=== PATIENT | male | born 1995 | race Caucasian/White ===

== ENCOUNTER → 2020-11-04 09:32 | Outpatient (CLI) | payer OTHER, SELFPAY ==
[2020-11-04 10:33] LABS: Anion Gap 4 (5-15); BUN 15 mg/dL (7-18); BUN/Creat Ratio 14.7 RATIO (10-20); Calcium,Total 9.8 mg/dL (8.5-10.1); Chloride 110 mmol/L (98-107); Creatinine, Serum 1.02 mg/dL (0.70-1.30); EST Glomerular Filtration Rate 96 mL/min (>60); Est Glom Filt Rate - Afr Amer 116 mL/min (>60); Glucose 93 mg/dL (74-106); Potassium 3.9 mmol/L (3.5-5.1); Sodium Level 139 mmol/L (136-145)
[2020-11-04 10:38] LABS: Microalbumin,Random Urine 6.3 mg/L (NO RANGE EST.); Microalbumin:Creatinine Ratio 4.9 mg/g CRE (<30 mg/g CRE)
== END ==
LOC: LAB 09:39
PROVIDERS: PCP Family Medicine; Referring Provider Family Medicine; Visit Provider Family Medicine
DX: I10 Essential (primary) hypertension (principal)
CPT/HCPCS: 36415; 80048; 82043; 82570

== ENCOUNTER 2020-12-06 19:51 | Emergency (ER) | payer OTHER, SELFPAY ==
[2020-12-06 19:51] VITALS: BP 133/86; PULSE 85; RESP 18; TEMP 36.1; O2SAT 99; BMI 30.2
--- NOTE | 2020-12-06 20:07 | RAD_ITS ---
STUDY: X-RAY CHEST REASON FOR EXAM: Male, 25 years old. Chest pain TECHNIQUE: Single frontal view of the chest. COMPARISON: None. FINDINGS: The lungs are clear and expanded. There is no demonstrated pleural abnormality. Normal size heart. Normal mediastinum and jovana. Normal visualized pulmonary arteries. Normal visualized aortic arch and descending thoracic aorta. Normal visualized thoracic spine. Normal visualized ribs, clavicles, and shoulders. There is no demonstrated abnormality of the visualized soft tissue structures of the upper abdomen. RAD/Chest 1 View (Portable) IMPRESSION: Normal x-ray examination of the chest. Electronically Signed: Dimitri Zuluaga MD at 21:06 EDT Tel , Service support ,
--- NOTE | 2020-12-06 20:07 | EKG12_ITS ---
Test Reason : CP Blood Pressure : / mmHG Vent. Rate : 076 BPM Atrial Rate : 076 BPM P-R Int : 140 ms QRS Dur : 086 ms QT Int : 374 ms P-R-T Axes : 029 -02 043 degrees QTc Int : 420 ms Normal sinus rhythm Normal ECG Confirmed by EMILY VALLE, MELVIN ([id number]), managing editor JL PENDLETON ([id number]) on 12/08/2020 10:45:11 A M Referred By: ALE/KATHERIN Confirmed By:UNIQUE DIAZ MD
--- NOTE | 2020-12-06 20:08 | EX.ED.DYSGE1 ---
HPI History of Present Illness Chief Complaint: Chest Pain Informant: patient Narrative Narrative: 25-year-old male with a history of hypertension on lisinopril presents with evaluation of chest pain. He states that there is a pressure in the center of his chest to go straight through to his back. Nothing he does makes it better or worse. It has been rather constant. He also states now he feels like there is a lump in his throat. He has not had any difficulty swallowing. He denies any cough or fevers. [facility] Medical History Hypertension Home Medications lisinopril 10 mg PO DAILY 12/06/20 [History Last Taken Unknown] pantoprazole [Protonix] 40 mg PO DAILY #14 tab 12/06/20 [Rx Last Taken Unknown] Allergy/AdvReac Type Severity Reaction Status Date / Time erythromycin base AdvReac Hives Verified 12/06/20 20:08 [From [facility]] Social History (Updated 12/06/20 @ 20:[address] Vu Olivo DO) Smoking Status: Never smoker substance use type: does not use ROS ROS ED Constitutional Constitutional ED: Denies chills or weight loss Eyes Eyes: Denies change in vision or diplopia ENT ENT ED: Reports other Details: See HPI ; Denies ear pain, rhinorrhea or sore throat Cardiovascular Cardiovascular: Reports chest pain; Denies orthopnea, palpitations or racing heartbeat Respiratory/Chest Respiratory/Chest: Denies cough, dyspnea or orthopnea Gastrointestinal Gastrointestinal: Denies abdominal pain, diarrhea, nausea or vomiting Genitourinary Genitourinary ED: Denies dysuria, hematuria or urinary frequency Musculoskeletal Musculoskeletal: Denies arthralgias or myalgias Integumentary Denies abscess or rash Neurologic Neurologic: Denies headache(s) or weakness Psychiatric Psychiatric: Denies anxiety, depression, suicidal ideation or suicidal thoughts Endocrine Endocrinology: Denies polydipsia, polyphagia or polyuria Allergic/Immunologic Allergic/Immunologic ED: Denies mouth swelling, tongue swelling or urticaria EXAM Physical Exam Const Vital Signs: 12/06/20 19:51 12/06/20 20:03 12/06/20 20:57 Temperature 97 F L Temperature Source Temporal Pulse Rate 85 85 Respiratory Rate 18 16 Respiratory Effort Normal Blood Pressure 133/86 H 112/67 Blood Pressure Mean 101 82 Pulse Ox 99 97 Oxygen Delivery Method Room Air Room Air 12/06/20 21:00 Temperature Temperature Source Pulse Rate 78 Respiratory Rate 16 Respiratory Effort Blood Pressure 122/80 H Blood Pressure Mean 94 Pulse Ox 97 Oxygen Delivery Method Room Air Positive well nourished and well developed General Appearance ED: well developed HEENT Reports normocephalic, head/scalp atraumatic and moist mucous membranes Eyes PERRL and EOMs intact bilaterally Neck no lymphadenopathy, supple and no JVD Resp normal respiratory effort and clear to auscultation bilaterally Cardio regular rate, regular rhythm and no murmurs GI normal to inspection, nondistended, normoactive bowel sounds and non-tender GI Narrative: Decreased appetite Palpation: soft Back/Spine no CVA tenderness and normal ROM Extremity normal to inspection General Extremety ED: Negative for edema General Extremity: Negative for edema Neuro oriented x3 and CN's II-XII intact bilaterally Sensorium / Orientation: alert Motor Exam: strength 5/5 throughout Psych mental status grossly normal Mood & Affect: Negative for depressed or tearful Skin no rashes or lesions noted and no wounds MDM MDM MDM Narrative Medical decision making narrative: EKG is a normal sinus rhythm. White count came back low at 3.9. D-dimer negative troponin negative CMP normal. Lipase is 60 TSH is normal. My interpretation of the chest x-ray is no acute process. Radiology concurs. Patient received a GI cocktail states that the chest pressure is still present but the lump in his throat is better. So this could be esophagitis things reasonable to treat with trial of a proton pump inhibitor. In the interim we will have the patient monitor himself for any worsening symptoms and schedule a follow-up appoint with his doctor. Return if worsening or concerns. Lab Data Attestation: I reviewed the patient's lab results. Labs: Laboratory Results - last 24 hr 12/06/20 12/06/20 12/06/20 20:00 20:00 20:10 WBC 3.9 L RBC 5.55 Hgb 16.4 Hct 49.7 MCV 89.5 MCH 29.5 MCHC 33.0 RDW Std Deviation 42.9 RDW Coeff of [place] 13.0 Plt Count 169 MPV 11.6 Immature Gran % (Auto) 0.500 Neut % (Auto) 26.0 L Lymph % (Auto) 55.2 H Hand % (Auto) 13.4 H Eos % (Auto) 4.1 Baso % (Auto) 0.8 Absolute Neuts (auto) 1.0 L Absolute Lymphs (auto) 2.14 Nucleated RBC % 0 D-Dimer Quant (PE/DVT) <= 0.27 Sodium 136 Potassium 3.8 Chloride 102 Carbon Dioxide 27.0 Anion Gap 7 BUN 16 Creatinine 1.33 H Estim Creat Clear Calc 100.43 Est GFR (MDRD) Af Amer 85 Est GFR (MDRD) Non-Af 71 BUN/Creatinine Ratio 12.0 Glucose 64 L Calcium 9.3 Total Bilirubin 0.40 AST 19 ALT 27 Alkaline Phosphatase 84 Troponin I < 0.015 Total Protein 7.7 Albumin 4.1 Globulin 3.6 Albumin/Globulin Ratio 1.1 Lipase 60 L TSH 0.49 Radiography Diagnostic Testing: Radiology Impression Chest X-Ray 12/06/20 20:07 IMPRESSION: Normal x-ray examination of the chest. Electronically Signed: Dimitri Zuluaga MD at 21:06 EDT Tel , Service support , EKG Initial EKG: Attestation: I personally reviewed and interpreted this EKG as follows: Comments: EKG is a normal sinus rhythm at a rate of 76. No concerning features of ACS or ectopy noted. Discharge Plan Triage Chief Complaint: Chest Pain ED Provider: Vu Olivo Dx/Rx/DC Orders Clinical Impression: Chest pain Instructions: Esophagitis, ED Chest Pain, Uncertain Cause Prescriptions: New pantoprazole [Protonix] 40 mg tablet,delayed release (DR/EC) 40 mg PO DAILY Qty: 14 RF: 0 No Action lisinopril 10 mg Tablet 10 mg PO DAILY RF: 0 Primary Care Provider: Stephane Machado Referrals: Stephane Machado DO [Primary Care Provider] - 1-2 Weeks Disposition Disposition: Home, self care
[2020-12-06] MEDS: Mag Hydrox/Al Hydrox/Simeth 30 ML UDC PO (20:12)
[2020-12-06 20:18] LABS: Absolute Lymphocyte Count 2.14 X10^3/uL (0.83-4.51); Basophil# 0.03 X10^3/uL; Basophil% 0.8 % (0-1); Eosinophil# 0.16 X10^3/uL; Eosinophils% 4.1 % (0-5); Hematocrit 49.7 % (40-54); Hemoglobin 16.4 g/dL (13.0-16.5); Lymphocyte # 2.14 X10^3/ul (0.83-4.51); Lymphocyte % 55.2 % (19-41); Mean Corpuscular Hgb 29.5 pg (27.0-32.0); Mean Corpuscular Volume 89.5 fL (80-94); Mean Platelet Vol. 11.6 fl (6.2-12.0); Monocyte# 0.52 X10^3/uL; Monocyte% 13.4 % (0-10); NRBC Flagged by Analyzer 0 % (0-5); Neutrophil # 1.01 X10^3/uL (2.7-7.7); Platelet Count 169 K/mm3 (150-450); RBC Distribution Width SD 42.9 fl (35.1-43.9); Red Blood Count 5.55 M/mm3 (4.6-6.2); White Blood Count 3.9 K/mm3 (4.4-11.0)
[2020-12-06 20:35] LABS: D-Dimer Quantitative (DVT/PE) <= 0.27 FEU/ug/m (0.27-0.49)
[2020-12-06 20:40] LABS: ALB/GLOB Ratio 1.1 RATIO (0.9-2.4); AST(SGOT) 19 U/L (15-37); Alanine Aminotransfer ALT/SGPT 27 U/L (16-61); Albumin, Serum 4.1 g/dL (3.2-5.0); Alkaline Phosphatase 84 U/L (45-117); Anion Gap 7 (5-15); BUN 16 mg/dL (7-18); Calcium,Total 9.3 mg/dL (8.5-10.1); Chloride 102 mmol/L (98-107); Creatinine, Serum 1.33 mg/dL (0.70-1.30); EST Glomerular Filtration Rate 71 mL/min (>60); Est Glom Filt Rate - Afr Amer 85 mL/min (>60); Estimated Creatinine Clearance 100.43 ml/min; Globulin 3.6 g/dL (2.2-4.2); Glucose 64 mg/dL (74-106); Lipase 60 U/L (73-393); Potassium 3.8 mmol/L (3.5-5.1); Protein, Total 7.7 g/dL (6.4-8.2); Sodium Level 136 mmol/L (136-145); Thyroid Stim Hormone (TSH) 0.49 uIU/mL (0.358-3.74)
[2020-12-06 20:57] VITALS: BP 112/67; PULSE 85; RESP 16; O2SAT 97
[2020-12-06 21:00] VITALS: BP 122/80; PULSE 78; RESP 16; O2SAT 97
[2020-12-06 21:35] VITALS: BP 119/72
== END 2020-12-06 21:39 | disposition home or self-care (01) ==
PROVIDERS: Emergency Provider Emergency Medicine; PCP Family Medicine
DX: R07.9 Chest pain, unspecified (principal); I10 Essential (primary) hypertension; Z79.899 Other long term (current) drug therapy
CPT/HCPCS: 71045; 80053; 83690; 84443; 84484; 85025; 85379; 87426; 93005; 99285; A4216

== ENCOUNTER 2021-08-12 06:44 | Emergency (ER) | payer BC, SELFPAY ==
[2021-08-12] VITALS (7 sets, daily range): BP systolic 118–152; BP diastolic 67–97; PULSE 18–101; RESP 14–21; TEMP 36.7; O2SAT 91–95; BMI 27.0
--- NOTE | 2021-08-12 06:49 | RAD_ITS ---
EXAM: XR CHEST, 1 VIEW : 1995 CLINICAL INDICATION: Dyspnea, cough, expiratory wheezing TECHNIQUE: Frontal view of the chest. This report was created using [employer] report generation technology. COMPARISON: 12/06/2020 FINDINGS: LUNGS AND PLEURAL SPACES: Unremarkable. No consolidation or edema. No pneumothorax. No effusion. HEART: Unremarkable. Cardiac silhouette not enlarged. MEDIASTINUM: Central airways and mediastinal contour are unremarkable. BONES/JOINTS: Unremarkable. SOFT TISSUES: Unremarkable. RAD/Chest 1 View (Portable) IMPRESSION: No radiographic evidence of acute cardiopulmonary disease. at 0937 Reported and signed by: Matthew Morales MD Electronically Signed: Matthew Morales MD at 9:36 EST ,
--- NOTE | 2021-08-12 06:51 | ED.VIS.DYS ---
HPI <Dr. Phan Sinclair MD - Last Filed: 08/12/21 07:40> History of Present Illness Chief Complaint: Shortness of Breath Informant: patient and parent Onset/Context/Timing Onset: Yesterday Context: sudden Timing: Continuous Quality: Positive for Dyspnea on exertion and Wheezing; Negative for Orthopnea and PND Current Severity: Mild Maximum Severity: Severe Worsened by: Exertion Relieved by: Nothing Associated Symptoms cough, rhinorrhea and clear sputum; Negative for fever, sore throat, subjective, chills, sweats, white sputum, yellow sputum or green sputum Chest Pain: Positive for None Narrative Narrative: Patient is a 26-year-old male who presents with nasal congestion, dyspnea and cough. Cough is slightly productive of clear-colored sputum. He had asthma as a child. He has been vaccinated for COVID. There is been no documented fever and he denies chills. He denies leg pain, swelling or discoloration. He denies history of VTE or any risk factors. Per mother sister had a pulmonary embolus. PE Risk Factors: Negative for Cancer, OCP + Smoking + > 35, Prior DVT or PE, Recent immobilization, Recent surgery and Recent travel Prior similar symptoms: No Recent Illness/Hospitalization: No PFSH <Dr. Phan Sinclair MD - Last Filed: 08/12/21 07:40> PFSH Medical History Hypertension Home Medications lisinopril 10 mg PO DAILY 12/06/20 [History Last Taken Unknown] albuterol sulfate [Ventolin HFA] 2 puff INHALATION Q4H PRN PRN #1 inhaler 08/12/21 [Rx Last Taken Unknown] prednisone 60 mg PO DAILY #15 tablet 08/12/21 [Rx Last Taken Unknown] Allergy/AdvReac Type Severity Reaction Status Date / Time erythromycin base AdvReac Hives Verified 12/06/20 20:08 [From [facility]] Social History (Updated 08/12/21 @ 06:[address] Phan Sinclair MD) household members: family Smoking Status: Current every day smoker tobacco type: cigarettes substance use type: marijuana ROS <Dr. Phan Sinclair MD - Last Filed: 08/12/21 07:40> ROS ED Constitutional Constitutional ED: Denies chills, fever(s), sweats or weight loss Eyes Eyes: Denies blurry vision, change in vision or diplopia ENT ENT ED: Reports rhinorrhea; Denies ear pain or sore throat Cardiovascular Cardiovascular: Denies chest pain, orthopnea, palpitations, paroxysmal nocturnal dyspnea or racing heartbeat Respiratory/Chest Respiratory/Chest: Reports cough, dyspnea, dyspnea on exertion and sputum; Denies orthopnea or paroxysmal nocturnal dyspnea Gastrointestinal Gastrointestinal: Denies abdominal pain, constipation, diarrhea, melena, nausea or vomiting Genitourinary Genitourinary ED: Denies dysuria, hematuria or urinary frequency Musculoskeletal Musculoskeletal: Denies arthralgias, back pain, myalgias or neck pain Integumentary Denies rash Neurologic Neurologic: Denies headache(s) or weakness Hematologic/Lymphatic Hematologic/Lymphatic: Denies easy bleeding or easy bruising EXAM <Dr. Phan Sinclair MD - Last Filed: 08/12/21 07:40> Physical Exam Const Vital Signs: 08/12/21 06:44 08/12/21 06:46 08/12/21 07:04 Temperature 98.1 F Temperature Source Oral Pulse Rate 101 H 95 Respiratory Rate 20 H 16 Respiratory Effort Short of Breath Respiratory Depth Normal Respiratory Pattern Normal Blood Pressure 152/97 H Blood Pressure Mean 115 Pulse Ox 94 95 Oxygen Delivery Method Room Air Room Air Room Air 08/12/21 07:35 08/12/21 10:24 08/12/21 11:37 Temperature Temperature Source Pulse Rate 98 18 L 82 Respiratory Rate 21 H 14 20 H Respiratory Effort Respiratory Depth Respiratory Pattern Blood Pressure 119/82 H 118/67 Blood Pressure Mean 94 Pulse Ox 92 93 91 Oxygen Delivery Method Room Air Room Air Positive well nourished and well developed General Appearance ED: well developed and other Patient appears dyspneic at rest. He is breathing greater than 20 times per minute. ; Negative for NAD or pallor HEENT Reports moist mucous membranes HEENT Narrative: Ears normal. Nares patent. atraumatic; Negative for tenderness Eyes PERRL and EOMs intact bilaterally General Eye ED: Negative for pale conjunctiva or scleral icterus Neck no lymphadenopathy, supple and no meningeal signs Neck Narrative: Trachea midline. No inspiratory expiratory stridor. Resp normal respiratory effort and No clear to auscultation bilaterally Auscultation: wheezes expiratory wheezes and throughout; Negative for rales or rhonchi Cardio regular rate, S1 normal heart sound, S2 normal heart sound and no murmurs Rate: tachycardic GI non-tender, non-distended and no masses Auscultation: normoactive bowel sounds Palpation: soft Back/Spine no CVA tenderness and normal to inspection Neuro oriented x3, CN's II-XII intact bilaterally and no sensory deficits noted [place] Coma Scale: document GCS findings Spontaneous Obeys Commands Oriented 15 Sensorium / Orientation: alert Motor Exam: strength 5/5 throughout Psych mental status grossly normal Thought Process: normal thought process Skin no wounds General Skin Exam: Negative for jaundice or pallor Lesions: no lesions Rashes: no rashes <Dr. Dawit Cardoza DO - Last Filed: 08/12/21 12:25> Physical Exam Const Vital Signs: 08/12/21 06:44 08/12/21 06:46 08/12/21 07:04 Temperature 98.1 F Temperature Source Oral Pulse Rate 101 H 95 Respiratory Rate 20 H 16 Respiratory Effort Short of Breath Respiratory Depth Normal Respiratory Pattern Normal Blood Pressure 152/97 H Blood Pressure Mean 115 Pulse Ox 94 95 Oxygen Delivery Method Room Air Room Air Room Air 08/12/21 07:35 08/12/21 10:24 08/12/21 11:37 Temperature Temperature Source Pulse Rate 98 18 L 82 Respiratory Rate 21 H 14 20 H Respiratory Effort Respiratory Depth Respiratory Pattern Blood Pressure 119/82 H 118/67 Blood Pressure Mean 94 Pulse Ox 92 93 91 Oxygen Delivery Method Room Air Room Air [facility] <Dr. Phan Sinclair MD - Last Filed: 08/12/21 07:40> [facility] Narrative Medical decision making narrative: In light of patient having rhinorrhea and cough with wheezing suspect he has respiratory infection. Need to rule out Covid. They represent viral versus bacteria. Unlikely to be pulmonary embolus. Will treat with prednisone 60 mg and albuterol. Chest x-ray was obtained to rule out pneumonia. Lab Data Attestation: I reviewed the patient's lab results. Lab results narrative: CBC is unremarkable. Basic metabolic panel is unremarkable. Labs: Laboratory Results - last 24 hr 08/12/21 08/12/21 07:09 07:09 WBC 9.6 RBC 5.81 Hgb 17.8 H Hct 52.0 MCV 89.5 MCH 30.6 MCHC 34.2 RDW Std Deviation 44.3 H RDW Coeff of [place] 13.5 Plt Count 246 MPV 11.2 Immature Gran % (Auto) 0.200 Neut % (Auto) 48.3 Lymph % (Auto) 26.4 Lane % (Auto) 6.3 Eos % (Auto) 17.9 H Baso % (Auto) 0.9 Absolute Neuts (auto) 4.6 Absolute Lymphs (auto) 2.52 Nucleated RBC % 0 Sodium 140 Potassium 4.1 Chloride 110 H Carbon Dioxide 23.0 Anion Gap 7 BUN 14 Creatinine 0.96 Estim Creat Clear Calc 137.95 Est GFR (MDRD) Af Amer 123 Est GFR (MDRD) Non-Af 101 BUN/Creatinine Ratio 14.5 Glucose 99 Calcium 9.1 Radiography Chest X-Ray - ED: 1 View and Read by ED Physician (Single view portable chest x-ray was interpreted by me at 0728. Cardiac silhouette size normal. Perihilar/mediastinum is unremarkable. Lung parenchyma is normal. Osseous structures are unremarkable.) Diagnostic Testing: Clinical Impression(s) from Imaging Studies Chest X-Ray 08/12/21 06:49 IMPRESSION: No radiographic evidence of acute cardiopulmonary disease. at 0937 Reported and signed by: Matthew Morales MD Electronically Signed: Matthew Morales MD at 9:36 EST Reading Location ID and State: [address] [place] [address] Tel , Service support , <Dr. Dawit Cardoza, DO - Last Filed: 08/12/21 12:25> [facility] Narrative Medical decision making narrative: Patient signed out to me for monitoring and follow-up on Covid testing which was negative. Chest x-ray was interpreted by myself and Dr. Sinclair is negative for acute findings. The radiologist does agree. Patient reevaluated and he still had some mild wheezing but felt well enough to go home. At this point his pulse ox was 93 to 94%. He does have a prescription for prednisone and albuterol. He is given return precautions if he is worsening. Impression: 1. Asthma exacerbation Lab Data Labs: Laboratory Results - last 24 hr 08/12/21 08/12/21 07:09 07:09 WBC 9.6 RBC 5.81 Hgb 17.8 H Hct 52.0 MCV 89.5 MCH 30.6 MCHC 34.2 RDW Std Deviation 44.3 H RDW Coeff of [place] 13.5 Plt Count 246 MPV 11.2 Immature Gran % (Auto) 0.200 Neut % (Auto) 48.3 Lymph % (Auto) 26.4 Lane % (Auto) 6.3 Eos % (Auto) 17.9 H Baso % (Auto) 0.9 Absolute Neuts (auto) 4.6 Absolute Lymphs (auto) 2.52 Nucleated RBC % 0 Sodium 140 Potassium 4.1 Chloride 110 H Carbon Dioxide 23.0 Anion Gap 7 BUN 14 Creatinine 0.96 Estim Creat Clear Calc 137.95 Est GFR (MDRD) Af Amer 123 Est GFR (MDRD) Non-Af 101 BUN/Creatinine Ratio 14.5 Glucose 99 Calcium 9.1 Radiography Diagnostic Testing: Clinical Impression(s) from Imaging Studies Chest X-Ray 08/12/21 06:49 IMPRESSION: No radiographic evidence of acute cardiopulmonary disease. at 0937 Reported and signed by: Matthew Morales MD Electronically Signed: Matthew Morales MD at 9:36 EST Reading Location ID and State: [address] [place] [address] Tel , Service support , Discharge Plan Triage Chief Complaint: Shortness of Breath ED Provider: Phan Sinclair Dx/Rx/DC Orders Clinical Impression: Acute bronchitis with bronchospasm Instructions: ED Bronchitis with Wheezing (Adult) Prescriptions: New prednisone 20 MG tablet 60 mg PO DAILY Qty: 15 RF: 0 albuterol sulfate [Ventolin HFA] 1 INHALER inhaler 2 puff inhalation Q4H PRN PRN (Reason: Wheezing) Qty: 1 RF: 0 No Action lisinopril 10 mg Tablet 10 mg PO DAILY RF: 0 Primary Care Provider: Stephane Machado Referrals: Stephane Machado, [Primary Care Provider] - 1 Week if not improving Disposition Disposition: Home, Self Care Discharge Date/Time: 08/12/21 11:38
[2021-08-12] MEDS: Albuterol 2.5 MG/3 ML VIAL.NEB. INHALATION ×3 (07:01→07:35)
[2021-08-12] MEDS: predniSONE 20 MG Tablet 60 MG PO (07:08)
[2021-08-12 07:22] LABS: Absolute Lymphocyte Count 2.52 X10^3/uL (0.83-4.51); Absolute Neutrophil Count 4.6 X10^3/uL (2.0-7.7); Basophil# 0.09 X10^3/uL; Basophil% 0.9 % (0-1); Eosinophil# 1.71 X10^3/uL; Eosinophils% 17.9 % (0-5); Hemoglobin 17.8 g/dL (13.0-16.5); Lymphocyte # 2.52 X10^3/ul (0.83-4.51); Lymphocyte % 26.4 % (19-41); Mean Corp Hgb Conc 34.2 g/dL (32-36); Mean Corpuscular Hgb 30.6 pg (27.0-32.0); Mean Corpuscular Volume 89.5 fL (80-94); Mean Platelet Vol. 11.2 fl (6.2-12.0); Monocyte% 6.3 % (0-10); NRBC Flagged by Analyzer 0 % (0-5); Neutrophil # 4.61 X10^3/uL (2.7-7.7); Neutrophil % 48.3 % (47-70); Platelet Count 246 K/mm3 (150-450); RBC Distribution Width CV 13.5 % (11.6-14.6); RBC Distribution Width SD 44.3 fl (35.1-43.9); Red Blood Count 5.81 M/mm3 (4.6-6.2); White Blood Count 9.6 K/mm3 (4.4-11.0)
[2021-08-12 07:36] LABS: Anion Gap 7 (5-15); BUN 14 mg/dL (7-18); BUN/Creat Ratio 14.5 RATIO (10-20); Calcium,Total 9.1 mg/dL (8.5-10.1); Chloride 110 mmol/L (98-107); Creatinine, Serum 0.96 mg/dL (0.70-1.30); EST Glomerular Filtration Rate 101 mL/min (>60); Est Glom Filt Rate - Afr Amer 123 mL/min (>60); Estimated Creatinine Clearance 137.95 ml/min; Glucose 99 mg/dL (74-106); Potassium 4.1 mmol/L (3.5-5.1); Sodium Level 140 mmol/L (136-145)
== END 2021-08-12 11:38 | disposition home or self-care (01) ==
PROVIDERS: Emergency Provider Emergency Medicine; PCP Family Medicine; Visit Provider Emergency Medicine
DX: J20.9 Acute bronchitis, unspecified (principal); J45.901 Unspecified asthma with (acute) exacerbation; Z20.822 Contact with and (suspected) exposure to COVID-19; I10 Essential (primary) hypertension; F17.210 Nicotine dependence, cigarettes, uncomplicated; Z79.899 Other long term (current) drug therapy
CPT/HCPCS: 71045; 80048; 85025; 87426; 94640; 99284; A4216